=== PATIENT | female | born 1980 | race Caucasian/White ===

== ENCOUNTER 2021-01-09 06:45 | Emergency (ER) | payer OTHER ==
--- OUTSIDE RECORDS SUMMARY | 2021-01-09 06:49 | XMS REPORT | Continuity of Care Document ---
:1980 Author Organization [facility] t Address [address] [place] [address] Care Team Providers Name Role Phone REZA HECTOR Primary Care Physician Unavailable AMY MAJOR Attending Clinician Unavailable Payers Payer Name Policy Type Policy Number Effective Date Expiration Date S uma [employer] [facility] [id number] 2020 00:00:00 ACCESS Problems This patient has no known problems. Allergies, Adverse Reactions, Alerts Allergy Allergy Status Severity Reaction(s) Onset Inactive Treating Comm ents Source Name Type Date Date Clinician IODINE Allergy Active 2020-02 DIANA Troncoso 02-17 - 00:00: [facility] Medications This patient has no known medications. Vital Signs Vital Name Observation Time Observation Value Comments Source HEIGHT 2020-12-18 09:36:00 162.6 cm WEIGHT 2020-12-18 09:36:00 60.328 kg Procedures This patient has no known procedures. Encounters Start End Encounter Admission Attending Care Care Encounter Source Date/Time Date/Time Type Type Clinicians Facility Department ID 2021-01-29 2021-01-29 Outpatient [facility] [id number] DIANA Troncoso 00:00:00 00:00:00 [facility] 2020-12-18 2020-12-18 Outpatient [facility] [id number] DIANA Troncoso 09:25:53 11:13:45 [facility] 2020-08-22 2020-08-22 Outpatient [facility] [id number] [facility]:00 [facility] 2020-08-20 2020-08-20 Outpatient [facility] [id number] [facility]00 [facility] 2020-03-25 2020-03-25 Outpatient [facility] [id number] [facility] 00[facility]00 [facility] Results This patient has no known results.
[2021-01-09 08:00] LABS: Absolute Lymphocytes (CBC) 1.9 K/uL (0.7-4.9); Basophils % 0.8 % (0-1.3); Hematocrit 37.6 % (36.0-45.0); Lymphocytes % 17.9 % (15.3-44.8); MPV 7.4 fL (7.6-11.3); RBC Red Blood Cell Count 3.89 M/uL (3.86-4.86)
[2021-01-09 08:03] LABS: Protime INR 0.89
--- NOTE | 2021-01-09 08:12 | RAD REPORT ---
EXAM DESCRIPTION: RAD - Chest Single View - 01/09/2021 7:53 am CLINICAL HISTORY: presyncope COMPARISON: None TECHNIQUE: AP portable chest image was obtained 01/09/2021 7:53 am . FINDINGS: Lungs are clear. Heart and vasculature are normal. No measurable pleural effusion and no p neumothorax. No acute bony abnormality seen. No acute aortic findings suspected. IMPRESSION: No acute cardiopulmonary process.
[2021-01-09 08:29] LABS: ALT/SGPT 18 U/L (12-78); AST/SGOT 9 U/L (15-37); Albumin 3.6 g/dL (3.4-5.0); Alkaline Phosphatase 96 U/L (45-117); BUN Blood Urea Nitrogen 9 mg/dL (7-18); Bicarbonate 27 mmol/L (21-32); Bilirubin Direct < 0.1 mg/dL (0-0.2); Bilirubin Total 0.3 mg/dL (0.2-1.0); Glucose Level 85 mg/dL (74-106); Magnesium 2.2 mg/dL (1.8-2.4); NT PRO-BNP 41 pg/mL (<125); Potassium 4.1 mmol/L (3.5-5.1); Protein, Total 8.2 g/dL (6.4-8.2); Sodium Level 141 mmol/L (136-145); Troponin (Emerg Dept Use Only) < 0.02 ng/mL (0.0-0.045)
--- NOTE | 2021-01-09 08:57 | EDPHYS ---
Physician Documentation [facility] Name: Kayleen Leal Age: 40 yrs Sex: Female : 1980 Arrival Date: 01/09/2021 Time: 06:50 Bed 12 Private MD: ED Physician Grant Garcia HPI: 01/09 07:34 This 40 yrs old Female presents to ER via Ambulatory with complaints of Low Blood [facility] Pressure. 07:34 The patient has experienced near-syncope. Onset: The symptoms/episode began/occurred jm acutely, today. Duration: This was a single episode. Associated injury: The patient did not suffer any apparent associated injury. Associated signs and symptoms: Pertinent negatives: abdominal pain, chest pain, confusion, diarrhea, headache, palpitations. Current symptoms: Currently, the patient is not experiencing any symptoms. This is a 40-year-old female with a history of hypertension the presents emerged department after an episode of low blood pressure which occurred earlier this morning. Patient states she normally takes carvedilol in the morning. Patient did not eat breakfast this morning but states that she normally does not eat breakfast. Patient states that she became diaphoretic with her peripheral vision declining and that she had to fight to stay conscious. Denies any recent vomiting or diarrhea, denies palpitations, denies chest pain, denies leg swelling. Patient does not take control. Denies any history of cancer. Denies any history of blood clots. 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 - Social history:: Smoking status: Patient denies any tobacco usage or history of. ROS: 07:34 Constitutional: Negative for fever, chills, and weight loss, Cardiovascular: Negative jmm for chest pain, palpitations, and edema, Respiratory: Negative for shortness of breath, cough, wheezing, and pleuritic chest pain. 07:34 Neuro: Positive for near syncope. 07:34 All other systems are negative. Exam: 07:34 Constitutional: This is a well developed, well nourished patient who is awake, alert, jmm and in no acute distress. Head/Face: atraumatic. Eyes: EOMI, no conjunctival erythema appreciated ENT: Moist Mucus Membranes Neck: Trachea midline, Supple Chest/axilla: Normal chest wall appearance and motion. Cardiovascular: Regular rate and rhythm. No edema appreciated Respiratory: Normal respirations, no respiratory distress appreciated Abdomen/GI: Non distended, soft Back: Normal ROM Skin: General appearance color normal MS/ Extremity: Moves all extremities, no obvious deformities appreciated, no edema noted to the lower extremities Neuro: Awake and alert, normal gait Psych: Behavior is normal, Mood is normal, Patient is cooperative and pleasant Vital Signs: 07:18 BP 128 / 97; Pulse 87; Resp 15; Temp 97.3; Pulse Ox 100% ; Weight 61.23 kg; Height 5 7 ft. 4 in. (162.56 cm); Pain 0/10; 08:45 BP 128 / 75; Pulse 84; Resp 14; Pulse Ox 100% ; ll3 07:18 Body Mass Index 23.17 (61.23 kg, 162.56 cm) 7 MDM: 07:34 Patient medically screened. [facility] 08:56 Data reviewed: vital signs, nurses notes. Counseling: I had a detailed discussion with tyler the patient and/or guardian regarding: the historical points, exam findings, and any diagnostic results supporting the discharge/admit diagnosis, lab results, radiology results, the need for outpatient follow up, to return to the emergency department if symptoms worsen or persist or if there are any questions or concerns that arise at home. 09:01 ED course: Patient is alert nontoxic in appearance in the ED. Labs unremarkable except [facility] for elevated D-dimer. Patient declined CT of the chest. Patient's PERC score is negative. Patient most likely low risk for pulmonary embolism. Patient advised to increase fluid intake and to follow with her PCP or cardiology for further evaluation otherwise given strict return precautions if symptoms return. Patient understood and agrees plan of care.. 12 07:34 Order name: Basic Metabolic Panel; Complete Time: 08:32 [facility] 01/09 07:34 Order name: CBC with Diff; Complete Time: 08:12 [facility] 01/09 07:34 Order name: LFT's; Complete Time: 08:32 [facility] 01/09 07:34 Order name: Magnesium; Complete Time: 08:32 [facility] 01/09 07:34 Order name: NT PRO-BNP; Complete Time: 08:32 [facility] 01/09 07:34 Order name: PT-INR; Complete Time: 08:12 [facility] 01/09 07:34 Order name: Troponin (emerg Dept Use Only); Complete Time: 08:32 [facility] 01/09 07:34 Order name: XRAY Chest (1 view); Complete Time: 08:13 [facility] 01/09 07:34 Order name: EKG; Complete Time: 07:35 [facility] 01/09 07:34 Order name: Cardiac monitoring; Complete Time: 07:46 [facility] 01/09 07:34 Order name: EKG - Nurse/Tech; Complete Time: 07:39 [facility] 01/09 07:34 Order name: IV Saline Lock; Complete Time: 07:54 [facility] 01/09 07:34 Order name: D-Dimer; Complete Time: 08:12 [facility] 01/09 07:34 Order name: Labs collected and sent; Complete Time: 07:54 [facility] 01/09 07:34 Order name: O2 Per Protocol; Complete Time: 07:39 [facility] 01/09 07:34 Order name: O2 Sat Monitoring; Complete Time: 07:40 [facility] Administered Medications: No medications were administered Disposition Summary: 01/09/21 08:57 Discharge Ordered Location: Home [facility] Condition: Stable [facility] Diagnosis - Hypotension, unspecified jmm - Near Syncope [facility] Followup: [facility] - With: Bharath Pierre MD - When: 2 - 3 days - Reason: Recheck today's complaints, Continuance of care, Re-evaluation by your physician Discharge Instructions: - Discharge Summary Sheet jm - Hypotension jmm - Near-Syncope [facility] Forms: - Medication Reconciliation Form [facility] - Thank You Letter [facility] - Antibiotic Education [facility] - Prescription Opioid Use [facility] Addendum: 01/13/2021 19:01 Co-signature as Attending Physician, Grant almeida Signatures: Dispatcher [employer] EDGrant Hogan MD MD pkl Mickail, Joel, PA PA Roger Goldsmith RN RN jl7 Corrections: (The following items were deleted from the chart) 12/02 08:38 08:13 Chest For PE Angio+CT.RAD.BRZ ordered. EDMS EDMS
--- NOTE | 2021-01-09 08:57 | ER ---
Nurse's Notes [facility] Name: Kayleen Leal Age: 40 yrs Sex: Female : 1980 Arrival Date: 01/09/2021 Time: 06:50 Bed 12 Private MD: Diagnosis: Hypotension, unspecified;Near Syncope Presentation: 01/09 07:18 Chief complaint: Patient states: Trying to get dressed this morning and had a hot jl7 flash, got lightheaded, sweaty and checked my BP and it read 60/59 then 80/59. Takes Coreg every morning, did take it this morning, but reports having this feel a few times over the last week. Coronavirus screen: At this time, the client does not indicate any symptoms associated with coronavirus-19. Ebola Screen: No symptoms or risks identified at this time. Initial Sepsis Screen: Does the patient meet any 2 criteria? No. Patient's initial sepsis screen is negative. Does the patient have a suspected source of infection? No. Patient's initial sepsis screen is negative. Risk Assessment: Do you want to hurt yourself or someone else? Patient reports no desire to harm self or others. Onset of symptoms was January 09, 2021. Care prior to arrival: None. 07:18 Method Of Arrival: Ambulatory 7 07:18 Acuity: EMILY 3 jl7 Triage Assessment: 07:22 General: Appears in no apparent distress. uncomfortable, Behavior is calm, cooperative, jl7 appropriate for age. Pain: Denies pain. Neuro: Level of Consciousness is awake, alert, obeys commands, Oriented to person, place, time, situation. Cardiovascular: Patient's skin is warm and dry. Respiratory: Airway is patent Respiratory effort is even, unlabored, Respiratory pattern is regular, symmetrical. Derm: Skin is pink, warm \T\ dry. 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 - Social history:: Smoking status: Patient denies any tobacco usage or history of. Screenin:47 Abuse screen: Denies threats or abuse. Nutritional screening: No deficits noted. ll3 Tuberculosis screening: No symptoms or risk factors identified. Fall Risk IV access (20 points). Assessment: 07:47 General: Appears in no apparent distress. uncomfortable, Behavior is calm, cooperative. ll3 Pain: Denies pain. Neuro: No deficits noted. Level of Consciousness is awake, alert, obeys commands, Oriented to person, place, time, situation. Cardiovascular: Patient's skin is warm and dry. Respiratory: Airway is patent Respiratory effort is even, unlabored, Respiratory pattern is regular, symmetrical. GI: Abdomen is flat, non-distended. Derm: Skin is pink, warm \T\ dry. 08:56 Reassessment: Patient appears in no apparent distress at this time. No changes from ll3 previously documented assessment. Patient and/or family updated on plan of care and expected duration. Pain level reassessed. Patient is alert, oriented x 3, equal unlabored respirations, skin warm/dry/pink. Patient denies pain at this time. Vital Signs: 07:18 BP 128 / 97; Pulse 87; Resp 15; Temp 97.3; Pulse Ox 100% ; Weight 61.23 kg; Height 5 jl7 ft. 4 in. (162.56 cm); Pain 0/10; 08:45 BP 128 / 75; Pulse 84; Resp 14; Pulse Ox 100% ; ll3 07:18 Body Mass Index 23.17 (61.23 kg, 162.56 cm) jl7 ED Course: 06:50 Patient arrived in ED. bp1 07:22 Triage completed. jl7 07:22 Arm band placed on right wrist. jl7 07:25 Nav Zuniga PA is PHCP. jmm 07:25 Grant Garcia MD is Attending Physician. jmm 07:39 Selwyn Suarez, NATHANIEL is Primary Nurse. ll3 07:47 Patient has correct armband on for positive identification. Placed in gown. Bed in low ll3 position. Call light in reach. Side rails up X 1. 07:53 XRAY Chest (1 view) In Process Unspecified. EDMS 07:54 Inserted saline lock: 22 gauge in right antecubital area, using aseptic technique. gd Blood collected. 08:56 Bharath Pierre MD is Referral Physician. [facility] 09:12 No provider procedures requiring assistance completed. IV discontinued, intact, ll3 bleeding controlled, No redness/swelling at site. Pressure dressing applied. Administered Medications: No medications were administered Outcome: 08:57 Discharge ordered by . [facility] 09:13 Discharged to home ambulatory. ll3 09:13 Condition: stable 09:13 Discharge instructions given to patient, Instructed on discharge instructions, follow up and referral plans. Demonstrated understanding of instructions, follow-up care. 09:13 Patient left the ED. ll3 Signatures: Dispatcher [employer] EDMS Nav Zuniga PA PA jmm Leal, Jahala, RN RN jl7 Susana Chawla Glynn gd Loubet, Lynsea, RN RN ll3
[2021-01-09 09:17] VITALS: TEMP 97.3; O2SAT 100
[2021-01-09 09:19] VITALS: BP 128/75
--- NOTE | 2021-01-11 12:42 | EKG ---
Test Date: 2021-01-09 Test Time: 07:37:23 Field Supervisor: LL MEASUREMENT RESULTS: Intervals: Rate: 84 TX: 138 QRSD: 72 QT: 352 QTc: 415 Gonzales: P: 49 TX: 138 QRS: 68 T: 68 INTERPRETIVE STATEMENTS: Normal sinus rhythm Normal ECG No previous ECG available for comparison Electronically Signed On 01-11-21 12:36:11 REGIONAL MERCHANDISING MANAGER by Bharath Pierre
== END 2021-01-09 09:13 | disposition home or self-care (01) ==
LOC: ER 06:45
DX: I95.9 Hypotension, unspecified (principal); I10 Essential (primary) hypertension; Z98.82 Breast implant status; Z88.1 Allergy status to other antibiotic agents
CPT/HCPCS: 36415; 71045; 80048; 80076; 83735; 83880; 84484; 85025; 85379; 85610; 93005; 99283